=== PATIENT | male | born 1985 | race Caucasian/White ===

== ENCOUNTER 2017-01-12 03:34 | Emergency (ER) | payer OTHER ==
--- NOTE | 2017-01-12 04:37 | ED NURSING NOTES ---
Clinical Report - Nurses [facility] [address] [place] [address] 01/12/2017 3:36 Patient: FABIAN RIVERA TRIAGE Triage time 0359. Acuity: LEVEL 4. Chief Complaint: (Ongoing back for 5 years sustained injury to back lifting an airplane tire; worsening of pain tonight, cannot find position of comfort. Taken ASA 500 mg yesterday. Pertinent positives lower back pain, describes it as "pain in the front part of my spine, may it is kidney stones," and nausea. Pertinent negatives include fever, chest pain, shortness of breath, dysuria, frequency, hematuria, constipation, diarrhea, vomiting, and no incontinence of urine/stool.). 04:04 01/12/17. Alert. No acute distress. SEPSIS SCREEN: Sepsis Screen: negative. Negative (no infection suspected/documented). --04:04 Jj Hutchins R.N. 03:59 01/12/17. BP: 138/83 (regular adult cuff) taken on the left arm, via an automated monitor, while lying. HR: 68 (normal rate). RR: 16 (regular, unlabored and normal). O2 saturation: 98% on room air. Temp: 98.6 F (oral). Pain level now: 4/10. Pain level at maximum: 8/10. Describes the quality as throbbing. --04:04 Jj Hutchins R.N. Weight: 88.4 kg stated. Height/Length: 75 inches Per Patient. BMI: 24.4. --04:02 Jj Hutchins R.N. Medications None. --04:03 Jj Hutchins R.N. Medication/allergy information source: the patient. --04:04 Jj Hutchins R.N. Allergies No Known Drug Allergy. --04:03 Jj Hutchins R.N. History Arrived by private vehicle. Historian: patient. Accompanied by spouse. Primary physician (None). Onset. (Ongoing for about 5 years intermittently). No weakness, tingling, trouble walking or fever. Treatment [employer]: Took aspirin. Symptoms did not improve after treatment. PAST MEDICAL HX: Immunizations: up-to-date. SOCIAL HX: Smoker- current status unknown (Vapes). No alcohol use or drug use. He has not traveled outside the [place] The patient was not exposed to MRSA. ABUSE ASSESSMENT: Abuse assessment: The patient was asked "Do you feel safe in your home?" and "Has anyone hurt you or threatened to hurt you?". No report of abuse. SELF HARM ASSESSMENT: A self harm assessment was performed. The patient answered "no" to the question "Do you have thoughts of harming or killing yourself?" and "Have you recently had thoughts about harming or killing others?". FALL RISK ASSESSMENT: Fall risk assessment completed. No fall risk identified. NUTRITIONAL RISK ASSESSMENT: The nutritional risk assessment revealed no deficiencies. FUNCTIONAL ASSESSMENT: Functional assessment: no impairments noted. LEARNING NEEDS ASSESSMENT: The learning needs assessment revealed no barriers. SKIN INTEGRITY ASSESSMENT: Skin integrity risk assessment completed. No skin integrity risk identified. --04:04 Jj Hutchins R.N. Assessment GENERAL / NEURO / PSYCH: Alert. Oriented X 4. Appears in no acute distress. [place] Coma Scale: 15- eyes open spontaneously (4); best verbal response- oriented x 4 (5); best motor response- obeys commands (6). Patient appears calm and cooperative. RESPIRATORY: No respiratory distress. Respirations not labored. SKIN: Skin is warm and dry. --04:04 Jj Hutchins R.N. Interventions ID band on patient. To treatment room. --04:04 Jj Hutchins R.N. PHYSICAL ASSESSMENT Ambulatory to room. GENERAL / NEURO / PSYCH: Alert. Oriented X 4. Appears in no acute distress. RESPIRATORY: No respiratory distress. Respirations not labored. CVS: Pulses: right radial 2+ and left radial 2+. Capillary refill less than 2 seconds. GI / : No CVA tenderness. EXTREMITIES: Sensation intact in extremities. ROM of extremities within normal limits. BACK: Normal inspection of the neck and back. Vertebral point tenderness over the thoracic spine and lumbar spine. Soft tissue tenderness in the right lower and left lower thoracic paraspinous region. --04:05 Jj Hutchins R.N. ( Gait WNL.). --04:07 Jj Hutchins R.N. NURSING PROGRESS NOTES The initial plan of care for this patient has been created This plan of care was discussed with the patient. Neuro-vascular extremity check distal to injury: pulses intact, no edema, capillary refill <2 seconds and sensation intact. Patient gowned. Reassurance given to the patient. Two patient identifiers checked. Call light placed in reach. Side rails up x 1. Bed placed in lowest position. Brakes of bed on. Patient ready for evaluation- ED physician notified. --04:05 Jj Hutchins R.N. DISPOSITION / DISCHARGE Departure time: 04:52. Condition at departure: stable. The goals identified in the patient's plan of care were met. No learning barriers present. Discharge instructions provided and reviewed with the patient. Reviewed medication(s) side effects, precautions, dosing and course information. Prescription(s) given to the patient (Fabian verbalizes importance of not driving and/or operating heavy machinery while under influence of sedatives. He verbalizes, safe proper use of all prescribed meds.). Reviewed referral to a primary care physician ([facility]; Fabian verbalizes importance establishing a PCP.). Patient verbalized understanding. Written instructions provided in [place]. ( Fabian verbalizes understanding of all d/c instructions including need to f/u with PCP. He has no questions and voices no concerns at this time.). FOX COMA SCORE: [place] Coma Scale: 15- eyes open spontaneously (4); best verbal response- oriented x 4 (5); best motor response- obeys commands (6). --04:52 Jj Hutchins R.N. 04:47 01/12/17. BP: 128/80 (regular adult cuff) taken on the left arm, via an automated monitor, while lying. HR: 60 (normal rate). RR: 14 (regular, unlabored and normal). O2 saturation: 98% on room air. Temp: 98.5 F (oral). Pain level now: 12/01. --04:52 Jj Hutchins R.N. The patient was discharged by the physician. He was discharged home and accompanied by spouse. He left the Emergency Department ambulatory and via private vehicle. Spouse driving. --04:52 Jj Hutchins R.N. Locked/Released at 01/15/2017 10:07 by Zeina Lance R.N.
--- NOTE | 2017-01-12 04:37 | ED CLINICAL REPORT ---
Clinical Report - Physicians/Mid Levels [facility] [address] [place] [address] 01/12/2017 3:36 Patient: LETICIA RIVERA Time Seen: 04:29 Jan 12 2017. Arrived- By private vehicle. Historian- patient. CPT: ER phys charges level 3 (#250022). HISTORY OF PRESENT ILLNESS Chief Complaint: BACK INJURY and BACK PAIN. It is described as being moderate in degree and in the area of the lower lumbar spine. The quality is noted to be sharp, aching, "pain" and similar to prior episodes. ((Ongoing back for 5 years sustained injury to back lifting an airplane tire; worsening of pain tonight, cannot find position of comfort. Taken ASA 500 mg yesterday.). It is still present. No bladder dysfunction, bowel dysfunction, sensory loss or motor loss. Patient notes an injury. Mechanism of injury- he was lifting. No other injury. Similar symptoms previously: Several times, as bad. Recent medical care: Not recently seen/assessed. REVIEW OF SYSTEMS No fever, chills, difficulty with urination, skin rash or cough. No difficulty breathing, chest pain, abdominal pain, nausea or vomiting. All systems otherwise negative, except as recorded above. PAST HISTORY Has had back injury. He has had prior back pain (Ongoing for about 5 years intermittently).). Medications: None. Allergies: No Known Drug Allergy. SOCIAL HISTORY Never smoker. No alcohol use or drug use. ADDITIONAL NOTES The nursing notes have been reviewed. PHYSICAL EXAM Vital Signs: 01/12/2017 03:59 BP: 138/83. HR: 68. RR: 16. O2 saturation: 98%. Temp: 98.6 F. Pain level now: 4/10. Appearance: Alert. Appears to be in pain. Patient in moderate distress. HEENT: Normal external inspection. Eyes: Pupils equal, round and reactive to light. ENT: Pharynx normal. Neck: Normal inspection. Neck nontender. Painless ROM. CVS: Heart sounds normal. Pulses normal. Respiratory: No respiratory distress. Breath sounds normal. Abdomen: Nontender. Back: Soft tissue tenderness in the right lower and left lower lumbar area. Limited ROM in the back. No muscle spasm in the back or vertebral point tenderness. Skin: Normal skin color. No rash. Extremities: Extremities exhibit normal ROM. Neuro: Oriented X 3. Mood/affect normal. No motor deficit. No sensory deficit. Reflexes normal. PROGRESS AND PROCEDURES Patient/family counseled. Disposition: Discharged. Condition: stable. CLINICAL IMPRESSION Acute and chronic nontraumatic lumbar back pain associated with muscle strain. (recurrent). No radiculopathy or neurological deficit. INSTRUCTIONS Limit lifting. No strenuous activity. Return to work tomorrow, in two days (avoid lifting and bending until symptoms resolve.). Do not work today, for one day until better. Warnings: GENERAL WARNINGS: Return or contact your physician immediately if your condition worsens or changes unexpectedly, if not improving as expected, or if other problems arise. Prescription Medications: Hydrocodone/APAP 5mg/325mg: take 1 to 2 orally every 6 hours as needed for pain. Dispense fifteen (15). No refills. Ibuprofen 600mg tablets: take 1 tablet orally every 8 hours as needed for pain. Dispense thirty (30). No refills. Soma 350 mg: Take 1 orally every 6 hours as needed for muscle spasm. Dispense twenty (20). No refills. Substitution is permissible. Follow-up: Follow up with your doctor in one week. Call for an appointment. Understanding of the discharge instructions verbalized by patient. (Electronically signed by Joss Glavan MD 01/14/2017 23:53)
--- NOTE | 2017-01-12 04:37 | ED CLINICAL REPORT ---
Clinical Report - Physicians/Mid Levels [facility] [address] [place] [address] 01/12/2017 3:36 Patient: LETICIA RIVERA Time Seen: 04:29 Jan 12 2017. Arrived- By private vehicle. Historian- patient. CPT: ER phys charges level 3 (#340859). HISTORY OF PRESENT ILLNESS Chief Complaint: BACK INJURY and BACK PAIN. It is described as being moderate in degree and in the area of the lower lumbar spine. The quality is noted to be sharp, aching, "pain" and similar to prior episodes. ((Ongoing back for 5 years sustained injury to back lifting an airplane tire; worsening of pain tonight, cannot find position of comfort. Taken ASA 500 mg yesterday.). It is still present. No bladder dysfunction, bowel dysfunction, sensory loss or motor loss. Patient notes an injury. Mechanism of injury- he was lifting. No other injury. Similar symptoms previously: Several times, as bad. Recent medical care: Not recently seen/assessed. REVIEW OF SYSTEMS No fever, chills, difficulty with urination, skin rash or cough. No difficulty breathing, chest pain, abdominal pain, nausea or vomiting. All systems otherwise negative, except as recorded above. PAST HISTORY Has had back injury. He has had prior back pain (Ongoing for about 5 years intermittently).). Medications: None. Allergies: No Known Drug Allergy. SOCIAL HISTORY Never smoker. No alcohol use or drug use. ADDITIONAL NOTES The nursing notes have been reviewed. PHYSICAL EXAM Vital Signs: 01/12/2017 03:59 BP: 138/83. HR: 68. RR: 16. O2 saturation: 98%. Temp: 98.6 F. Pain level now: 4/10. Appearance: Alert. Appears to be in pain. Patient in moderate distress. HEENT: Normal external inspection. Eyes: Pupils equal, round and reactive to light. ENT: Pharynx normal. Neck: Normal inspection. Neck nontender. Painless ROM. CVS: Heart sounds normal. Pulses normal. Respiratory: No respiratory distress. Breath sounds normal. Abdomen: Nontender. Back: Soft tissue tenderness in the right lower and left lower lumbar area. Limited ROM in the back. No muscle spasm in the back or vertebral point tenderness. Skin: Normal skin color. No rash. Extremities: Extremities exhibit normal ROM. Neuro: Oriented X 3. Mood/affect normal. No motor deficit. No sensory deficit. Reflexes normal. PROGRESS AND PROCEDURES Patient/family counseled. Disposition: Discharged. Condition: stable. CLINICAL IMPRESSION Acute and chronic nontraumatic lumbar back pain associated with muscle strain. (recurrent). No radiculopathy or neurological deficit. INSTRUCTIONS Limit lifting. No strenuous activity. Return to work tomorrow, in two days (avoid lifting and bending until symptoms resolve.). Do not work today, for one day until better. Warnings: GENERAL WARNINGS: Return or contact your physician immediately if your condition worsens or changes unexpectedly, if not improving as expected, or if other problems arise. Prescription Medications: Hydrocodone/APAP 5mg/325mg: take 1 to 2 orally every 6 hours as needed for pain. Dispense fifteen (15). No refills. Ibuprofen 600mg tablets: take 1 tablet orally every 8 hours as needed for pain. Dispense thirty (30). No refills. Soma 350 mg: Take 1 orally every 6 hours as needed for muscle spasm. Dispense twenty (20). No refills. Substitution is permissible. Follow-up: Follow up with your doctor in one week. Call for an appointment. Understanding of the discharge instructions verbalized by patient. (Electronically signed by Joss Galvan MD 01/14/2017 23:53)
--- NOTE | 2017-01-15 10:07 | ED DISCHARGE INSTRUCTIONS ---
Patient: LETICIA RIVERA General Instructions [facility] VisitID: [id number] [address] [place] [address] 31y, M Registration Date/Time: 01/12/2017 Acute and chronic nontraumatic lumbar back pain associated with muscle strain. (recurrent). No radiculopathy or neurological deficit. INSTRUCTIONS Limit lifting. No strenuous activity. Return to work tomorrow, in two days (avoid lifting and bending until symptoms resolve.). Do not work today, for one day until better. Warnings: GENERAL WARNINGS: Return or contact your physician immediately if your condition worsens or changes unexpectedly, if not improving as expected, or if other problems arise. Prescription Medications: Hydrocodone/APAP 5mg/325mg: take 1 to 2 orally every 6 hours as needed for pain. Dispense fifteen (15). No refills. Ibuprofen 600mg tablets: take 1 tablet orally every 8 hours as needed for pain. Dispense thirty (30). No refills. Soma 350 mg: Take 1 orally every 6 hours as needed for muscle spasm. Dispense twenty (20). No refills. Substitution is permissible. Follow-up: Follow up with your doctor in one week. Call for an appointment. Understanding of the discharge instructions verbalized by patient. ADDITIONAL INFORMATION Back Pain [Acute Or Chronic] Back pain is usually caused by an injury to the muscles or ligaments of the spine. Sometimes the disks that separate each bone in the spine may bulge and cause pain by pressing on a nearby nerve. Back pain may also appear after a sudden twisting/bending force (such as in a car accident), after a simple awkward movement, or lifting something heavy with poor body positioning. In either case, muscle spasm is often present and adds to the pain. Acute back pain usually gets better in one to two weeks. Back pain related to disk disease, arthritis in the spinal joints or spinal stenosis (narrowing of the spinal canal) can become chronic and last for months or years. Unless you had a physical injury (for example, a car accident or fall) X-rays are usually not ordered for the initial evaluation of back pain. If pain continues and does not respond to medical treatment, x-rays and other tests may be performed at a later time. Home Care: You may need to stay in bed the first few days. But, as soon as possible, begin sitting or walking to avoid problems with prolonged bed rest (muscle weakness, worsening back stiffness and pain, blood clots in the legs). When in bed, try to find a position of comfort. A firm mattress is best. Try lying flat on your back with pillows under your knees. You can also try lying on your side with your knees bent up towards your chest and a pillow between your knees. Avoid prolonged sitting. This puts more stress on the lower back than standing or walking. During the first two days after injury, apply an ICE PACK to the painful area for 20 minutes every 2-4 hours. This will reduce swelling and pain. HEAT (hot shower, hot bath or heating pad) works well for muscle spasm. You can start with ice, then switch to heat after two days. Some patients feel best alternating ice and heat treatments. Use the one method that feels the best to you. You may use acetaminophen (Tylenol) or ibuprofen (Motrin, Advil) to control pain, unless another pain medicine was prescribed. [NOTE: If you have chronic liver or kidney disease or ever had a stomach ulcer or GI bleeding, talk with your doctor before using these medicines.] Be aware of safe lifting methods and do not lift anything over 15 pounds until all the pain is gone. Follow Up with your doctor or this facility if your symptoms do not start to improve after one week. Physical therapy may be needed. [NOTE: If X-rays were taken, they will be reviewed by a radiologist. You will be notified of any new findings that may affect your care.] Get Prompt Medical Attention if any of the following occur: Pain becomes worse or spreads to your legs Weakness or numbness in one or both legs Loss of bowel or bladder control Numbness in the groin or genital area You have been given the following additional information: Back Pain (Acute Or Chronic) Limit lifting. No strenuous activity. Return to work tomorrow, in two days (avoid lifting and bending until symptoms resolve.). Do not work today, for one day until better. (Electronically signed by Joss Galvan MD 01/14/2017 23:53)
--- NOTE | 2017-01-15 10:07 | ED MED RECONCILIATION SUMMARY ---
Patient: LETICIA RIVERA Medication Reconciliation Report [facility] VisitID: [id number] [address] [place] [address] 31y, M Registration Date/Time: 01/12/2017 Weight: 88.4 kg Height/Length: 75 in. BMI: 24.4 ALLERGIES: No Known Drug Allergy The patient's Home Medications are listed below: NONE. The source(s) of the original Home Medication information: patient The following Medications were given to the patient in the Emergency Department: None. The following Medications were prescribed to the patient: Hydrocodone/APAP 5mg/325mg: take 1 to 2 orally every 6 hours as needed for pain. Dispense fifteen (15). No refills. -- Joss Galvan MD Ibuprofen 600mg tablets: take 1 tablet orally every 8 hours as needed for pain. Dispense thirty (30). No refills. -- Joss Galvan MD Soma 350 mg: Take 1 orally every 6 hours as needed for muscle spasm. Dispense twenty (20). No refills. Substitution is permissible. -- Joss Galvan MD
--- NOTE | 2017-01-15 10:07 | ED MAR SUMMARY ---
..... Medication Administration Record [facility] [address] [place] [address] Patient: LETICIA RIVERA Visit ID: [id number] 31y, M Weight: 88.4 kg Height/Length: 75 in BMI: 24.4 ALLERGIES: No Known Drug Allergy
--- NOTE | 2017-01-15 10:07 | ED MAR SUMMARY ---
..... Medication Administration Record [facility] [address] [place] [address] Patient: LETICIA RIVERA Visit ID: [id number] 31y, M Weight: 88.4 kg Height/Length: 75 in BMI: 24.4 ALLERGIES: No Known Drug Allergy
--- NOTE | 2017-01-15 10:07 | ED MED RECONCILIATION SUMMARY ---
Patient: LETICIA RIVERA Medication Reconciliation Report [facility] VisitID: [id number] [address] [place] [address] 31y, M Registration Date/Time: 01/12/2017 Weight: 88.4 kg Height/Length: 75 in. BMI: 24.4 ALLERGIES: No Known Drug Allergy The patient's Home Medications are listed below: NONE. The source(s) of the original Home Medication information: patient The following Medications were given to the patient in the Emergency Department: None. The following Medications were prescribed to the patient: Hydrocodone/APAP 5mg/325mg: take 1 to 2 orally every 6 hours as needed for pain. Dispense fifteen (15). No refills. -- Joss Galvan MD Ibuprofen 600mg tablets: take 1 tablet orally every 8 hours as needed for pain. Dispense thirty (30). No refills. -- Joss Galvan MD Soma 350 mg: Take 1 orally every 6 hours as needed for muscle spasm. Dispense twenty (20). No refills. Substitution is permissible. -- Joss Glavan MD
== END 2017-01-12 04:40 | disposition home or self-care (01) ==
LOC: ED SRH 03:34
DX: S39.012A Strain of muscle, fascia and tendon of lower back, initial encounter (principal); G89.29 Other chronic pain; M54.5 Low back pain; X50.0XXA Overexertion from strenuous movement or load, initial encounter; Y93.89 Activity, other specified; Y92.9 Unspecified place or not applicable; Y99.9 Unspecified external cause status